=== PATIENT | male | born 1990 | race Caucasian/White ===

== ENCOUNTER 2019-12-15 22:07 | Emergency (ER) | payer OTHER ==
[~2019-12-15] VITALS: Ht 188 cm; Wt 113.4 kg
[~2019-12-15 22:07] MED LIST: COUMADIN 5 MG TA5 M1 PO; FLAGYL 250 MG250 MG PO; KEFLEX500 MG PO; LOVENOX SQ; NOHOMEMEDICATIONS; PERCOCET 5-3251 EACH PO
[2019-12-16 03:41] VITALS: BP 132/76
== END 2019-12-16 03:34 | disposition home or self-care (01) ==
LOC: ER 22:07
DX: F10.921 Alcohol use, unspecified with intoxication delirium (principal); F17.210 Nicotine dependence, cigarettes, uncomplicated; Z90.49 Acquired absence of other specified parts of digestive tract; Y90.9 Presence of alcohol in blood, level not specified